=== PATIENT | female | born 1985 | race Caucasian/White ===

== ENCOUNTER 2018-07-17 07:00 | Inpatient (IN) | payer SELFPAY ==
[2015-08-18 08:54] VITALS: BMI 31.8
[2018-07-17 07:36] VITALS: BMI 33.0
[2018-07-17] MEDS: Lactated Ringers 1,000 ML 50 ML IV ×2 (08:01→13:47)
[2018-07-17] MEDS: Oxytocin 30 units/NS 500 ml 30 UNITS/500 ML IV.SOLN IV (08:14)
[2018-07-17 08:17] LABS: Absolute Lymphocyte Count 1.09 X10^3/ul (0.83-4.51); Absolute Neutrophil Count 3.3 X10^3/uL (2.0-7.7); Eosinophil# 0.02 X10^3/uL; Eosinophils% 0.4 % (0-5); Hematocrit 37.5 % (37-47); Hemoglobin 12.7 g/dl (12.0-15.0); Lymphocyte # 1.09 X10^3/ul (4.0); Lymphocyte % 22.3 % (19-41); Mean Corp Hgb Conc 33.9 g/gl (32-36); Mean Corpuscular Hgb 30.5 pg (27.0-32.0); Mean Corpuscular Volume 90.1 fL (81-99); Mean Platelet Vol. 11.5 fl (6.2-12.0); Monocyte# 0.47 X10^3/uL; Monocyte% 9.6 % (0-10); Neutrophil # 3.29 X10^3/uL (2.7-7.7); Neutrophil % 67.5 % (47-70); Platelet Count 165 K/mm3 (150-450); RBC Distribution Width CV 13.7 % (11.6-14.6); RBC Distribution Width SD 44.8 fl (35.1-43.9); Red Blood Count 4.16 M/mm3 (4.2-5.4); White Blood Count 4.9 K/mm3 (4.4-11.0)
[2018-07-17 08:22] LABS: POSITIVE COUNT NO; POSITIVE DIFFERENTIAL NO; POSITIVE MORPHOLOGY NO
--- NOTE | 2018-07-17 11:01 | PCM.HP.OB ---
- Problem List (1) Multiparity Status: Acute (2) 40 weeks gestation of Status: Acute (3) Positive GBS test Status: Acute History Date of Admission: 07/17/18 Final SARAH: 07/17/18 Final SARAH Source: LMP Gestational age: 40 Weeks and 0 Days History of this : This is a 32 year-old, G3, P2, at 40 weeks gestational age who presents for IOL for cervical dilation, multiparity, GBS positive. She is feeling well. +Irregular ctx's. No vb, lof. Good FM. Surgical History: Surgical History (Last Updated 07/17/18 @ 11:03 by Clara Cevallos DO) History of adenoidectomy Z90.89 Allergies No Known Allergies Allergy (Verified 07/17/18 07:38) Home Medications: Home Medications Vits [Prenatabs FA ] 1 tablet PO DAILY 08/18/15 Papaya Enzyme 1 tablet PO DAILY 07/17/18 Dha 500 mg PO DAILY 07/17/18 Probiotic 1 capsule PO DAILY 07/17/18 Smoking Status: Never smoker Alcohol: None Number of Fetus(es): 1 Heart Tracin/mod daija/+accels/no decels TOCO Analysis: No ctx's prior to pitocin History Past Pregnancies: Past Pregnancies Delivery Date Name GA/Weeks Outcome Route Weight Infant Gender Labor Length Anesthesia Delivery Location Provider FOB 41 7lb 41 7lb Labs: GBS positive Hgb 12.6 1 hr GTT 85 Isolated [employer] on anatomy US Syphilis NR RI Hep B neg HIV NR Rh positive GC/CT neg Expected Delivery Method: Spontaneous Vaginal Review of Systems Genitourinary: Reports: - - +Irregular ctx's. No vb, lof. 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 - Pitocin started given cervical dilation of 3 cm - PCN for GBS prophylaxis - Pt planning for epidural - Routine intrapartum care
--- NOTE | 2018-07-17 11:08 | HP.PCM_ITS ---
- Problem List (1) Multiparity Status: Acute (2) 40 weeks gestation of Status: Acute (3) Positive GBS test Status: Acute History Date of Admission: 07/17/18 Final SARAH: 07/17/18 Final SARAH Source: LMP Gestational age: 40 Weeks and 0 Days History of this : This is a 32 year-old, G3, P2, at 40 weeks gestational age who presents for IOL for cervical dilation, multiparity, GBS positive. She is feeling well. +Irregular ctx's. No vb, lof. Good FM. Surgical History: Surgical History (Last Updated 07/17/18 @ 11:03 by Clara Cevallos DO) History of adenoidectomy Z90.89 Allergies No Known Allergies Allergy (Verified 07/17/18 07:38) Home Medications: Home Medications Vits [Prenatabs FA ] 1 tablet PO DAILY 08/18/15 Papaya Enzyme 1 tablet PO DAILY 07/17/18 Dha 500 mg PO DAILY 07/17/18 Probiotic 1 capsule PO DAILY 07/17/18 Smoking Status: Never smoker Alcohol: None Number of Fetus(es): 1 Heart Tracin/mod daija/+accels/no decels TOCO Analysis: No ctx's prior to pitocin History Past Pregnancies: Past Pregnancies Delivery Date Name GA/Weeks Outcome Route Weight Infant Gender Labor Length Anesthesia Delivery Location Provider FOB 41 7lb 41 7lb Labs: GBS positive Hgb 12.6 1 hr GTT 85 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 No vb, lof. 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 - Pitocin started given cervical dilation of 3 cm - PCN for GBS prophylaxis - Pt planning for epidural - Routine intrapartum care
--- NOTE | 2018-07-17 11:56 | PN_ITS ---
Progress Note At bedside to check pt. She is getting more uncomfortable with ctx's. Cvx /- 2, AROM performed in usual fashion with return of scant clear fluid. Category 1 tracing. Continue current management
[2018-07-17] MEDS: fentaNYL-bupivacaine (epidural) 100 ML BAG EPIDURAL (13:22)
[2018-07-17] MEDS: Oxytocin 30 units/NS 500 ml 30 UNITS/500 ML IV.SOLN 334 UNITS IV (16:54)
[2018-07-17] MEDS: Oxytocin 30 units/NS 500 ml 30 UNITS/500 ML IV.SOLN 167 UNITS IV (17:24)
--- NOTE | 2018-07-17 17:56 | PCM.OPRPT ---
Problem List (1) Multiparity Status: Acute (2) 40 weeks gestation of Status: Acute (3) Positive GBS test Status: Acute Report of Operation Date of Procedure: 07/17/18 Pre-Operative Diagnosis: Multiparity, 40 week gestation, history of fast labor, positive GBS test, patient desires elective induction Post-Operative Diagnosis: As above Surgery/Procedure Performed:: Type of Anesthesia:: Epidural Specimen's removed: Placenta Estimated Blood Loss (mL): 300 Grafts/Implants Used: None - Complications None - Admit VTE Documentation VTE Present on Admission: No VTE Mechan Device Prophylaxis: None VTE Pharm Prophylaxis ordered?: No Vaginal Delivery Maternal Presentation: Elective Induction Method of Induction: Pitocin, Amniotomy Amniotic Membrane Rupture Type: Artificial Amniotic Fluid Description: Clear Final SARAH: 07/17/18 Gestational age: 40 Weeks and 0 Days Date of Procedure: 07/17/18 Pre-Operative Diagnosis: Multiparity, 40 week gestation, history of fast labor, GBS positive Post-Operative Diagnosis: As above Surgery/ Procedure Performed: Spontaneous Vaginal Delivery Type of Anesthesia: Epidural Description of Procedure: Patient complete and pushing. Head, anterior shoulder, posterior shoulder delivered without force or delay. VMI delivered through a nuchal cord and placed on mother's abdomen. Cord clamped and cut after 60 sec delay by FOB. Placenta delivered intact with fundal massage. Placenta normal in appearance and 3 vessel cord noted. Uterus explored x 1 with no retained placenta noted. Fundus firm and bleeding hemostatic. 2nd degree perineal laceration repaired in usual fashion using 3-0 Vicryl. Rectal exam performed. Presentation: Vertex Placental Delivery Description: Expressed Cord Vessel Description: 3 Vessels Nuchal Cord Compression: Without compression Cord Entanglement: Around neck x 1, tight Drain: Adams to straight drain Estimated Blood Loss: 300 A gender: Male (1 minute): 8 (5 minute): 9 Episiotomy Description: None Laceration: 2nd degree Medications given after delivery: IV Pitocin Complications: None
[2018-07-17] MEDS: 0.9% Saline Lock 10 ML Syringe IV (18:43)
[2018-07-17] MEDS: Ibuprofen 600 MG Tablet PO (19:26)
[2018-07-17 20:04] VITALS: RESP 16
[2018-07-17 20:12] VITALS: BP 129/85; PULSE 93; RESP 16; TEMP 36.9; O2SAT 98
[2018-07-17] MEDS: Acetaminophen 500 MG Tablet 1000 MG PO (22:01)
[2018-07-18 00:26] VITALS: BP 106/70; PULSE 59; RESP 16; TEMP 36.6
[2018-07-18] MEDS: Ibuprofen 600 MG Tablet PO ×4 (02:09→20:28)
[2018-07-18 04:52] VITALS: BP 128/76; PULSE 69; RESP 18; TEMP 36.7; O2SAT 96
[2018-07-18] MEDS: Acetaminophen 500 MG Tablet 1000 MG PO ×2 (06:52→18:07)
[2018-07-18 08:20] VITALS: BP 114/78; PULSE 82; RESP 16; TEMP 36.8
--- NOTE | 2018-07-18 10:45 | PCM.PN.OB ---
Patient Problems: Active and Suspected Problems Multiparity (Acute) 40 weeks gestation of (Acute) Positive GBS test (Acute) Subjective: Patient doing well. +Neck pain that is going to be evaluated by anesthesia. No HAQ, CP, SOB, palpitations, leg pain. +Cramping that is controlled. Luis reg diet without N/V. Ambulating and voiding without difficulty. She desires to stay the night given the neck pain. Using heat currently for the pain - Physical Exam General: Alert, No apparent distress HEENT: Atraumatic Lungs: - - No increased resp effort Abdomen: Soft, - - FF@U-1, ATTP Extremities: No Calf Tenderness Skin: No rashes Neurological: Neuro grossly intact Psych/Mental Status: Normal Affect, Appropriate Vital Signs Temp Pulse Resp BP Pulse Ox 98.3 F 82 16 114/78 96 07/18/18 08:20 07/18/18 08:20 07/18/18 08:20 07/18/18 08:20 07/18/18 04:52 Oxygen Delivery Method Room Air Weight: 186 lb 9.6 oz Body Mass Index (BMI) 33.0 Intake and Output for Last 24 Hours 07/16/18 07/17/18 07/18/18 23:59 23:59 23:59 Output Total 1400 / 1400 500 / 500 Balance -1400 / -1400 -500 / -500 Medical Necessity - Tobacco Use Smoking Status: Never smoker Assessment/Plan All Active Problems Multiparity (Acute) 40 weeks gestation of (Acute) Positive GBS test (Acute) PPD#1 s/p - Doing well - Neck pain to be evaluated by anesthesia. Continue heat, ice, Tylenol, Motrin prn at this time - Dispo: Routine care. Anticipate d/c home tomorrow
[2018-07-18 12:35] VITALS: BP 118/76; PULSE 83; RESP 16; TEMP 36.6
[2018-07-18] MEDS: Senna/Docusate Sodium 1 Tablet PO (15:27)
[2018-07-18 15:30] VITALS: BP 126/85; PULSE 75; RESP 16; TEMP 36.8
[2018-07-18 20:00] VITALS: BP 108/64; PULSE 61; RESP 18; TEMP 37.2
--- NOTE | 2018-07-18 22:49 | NURSING ---
2000 continues to have HAQ referring to neck and shoulders. Pain instantly worse upon standing and lessens when lying down. States knows that she needs to drink caffeine, fluids - drank one cup of coffee earlier. Encouraged to take in more caffeine. Discussed blood patch, pt concerned about another stick, questions answered.
[2018-07-19 02:00] VITALS: BP 114/80; PULSE 54; RESP 16; TEMP 36.9
[2018-07-19] MEDS: Ibuprofen 600 MG Tablet PO ×2 (02:35→08:32)
[2018-07-19] MEDS: Acetaminophen 500 MG Tablet 1000 MG PO (05:20)
[2018-07-19 08:00] VITALS: BP 108/72; PULSE 71; RESP 16; TEMP 36.8
--- NOTE | 2018-07-19 08:36 | PCM.PN.OB ---
Patient Problems: Active and Suspected Problems Multiparity (Acute) 40 weeks gestation of (Acute) Positive GBS test (Acute) Subjective: Patient doing well. Has a spinal HAQ and was evaluated by anesthesia yesterday, she is considering blood patch. No other complaints. No vision changes, CP, SOB, palpitations, leg pain. No uncontrolled abd pain. Luis reg diet without N/V. Ambulating and voiding without difficulty. Lochia normal. Feels ready to go home today - Physical Exam General: Alert, No apparent distress HEENT: Atraumatic Lungs: - - No increased resp effort Abdomen: Soft, Non Tender, - - FF@U Extremities: No edema Skin: No rashes Neurological: Neuro grossly intact Psych/Mental Status: Normal Affect, Appropriate Vital Signs Temp Pulse Resp BP Pulse Ox 98.4 F 54 L 16 114/80 96 07/19/18 02:00 07/19/18 02:00 07/19/18 02:00 07/19/18 02:00 07/18/18 04:52 Oxygen Delivery Method Room Air Weight: 186 lb 9.6 oz Body Mass Index (BMI) 33.0 Intake and Output for Last 24 Hours 07/17/18 07/18/18 07/19/18 23:59 23:59 23:59 Output Total 1400 / 1400 500 / 500 Balance -1400 / -1400 -500 / -500 Medical Necessity - Tobacco Use Smoking Status: Never smoker Assessment/Plan All Active Problems Multiparity (Acute) 40 weeks gestation of (Acute) Positive GBS test (Acute) PPD#2 s/p - Spinal HAQ: Pt considering blood patch. She is going to talk about it further with anesthesia to decide. Was evaluated by anesthesia yesterday - Otherwise doing well - Dispo: D/c home today. Discharge reviewed
--- NOTE | 2018-07-19 08:41 | DCINST_ITS ---
Discharge Diet: No Restrictions Discharge Activity: Return to Normal Activity, May Shower, May Take a Tub Bath May resume sexual activity in: 6 weeks Weight Bearing Status: Weight bearing as tolerated, Full weight bearing Lifting Restrictions: None Call your doctor if you observe: Fever of 101 or Higher, Inability to urinate, Inability to have a bowel movement, Using more than one pad per hour, Shortness of breath, Dizziness, Chest pain, Increased palpitations (irregular heartbeat), Calf discomfort, Uncontrolled pain Instructions: After a Vaginal Additional Instructions: If you experience any of the following, contact your healthcare provider. * Bleeding that soaks a pad every hour for 2 hours * Fever 100.4 or higher * Unrelieved incision or abdominal pain * Swelling, redness, discharge or bleeding from your incision or episiotomy site * Your incision begins to separate * Problems urinating (including inability to urinate or burning while urinat ing). * Visual changes * Severe headache * Flu-like symptoms * Pain or redness in one of both of your breasts * Pain, warmth, tenderness or swelling in your legs, especially the calf area * Frequent nausea and vomiting * Symptoms of depression or anxiety If you experience any of the following, call 911 or go to the nearest Emergency Room. * Chest pain * Problems breathing * Seizure activity * Partial or complete paralysis of a body part, slurred speech, weakness or drooping of the face, or a sudden inability to walk or hold your balance Allergies/Adverse Reactions: Allergies No Known Allergies Allergy (Verified 07/17/18 07:38) Medications to take at Discharge Vits [Prenatabs FA ] 1 tablet PO DAILY 08/18/15 Papaya Enzyme 1 tablet PO DAILY 07/17/18 Dha 500 mg PO DAILY 07/17/18 Probiotic 1 capsule PO DAILY 07/17/18 When: In 1-2 weeks if you desires, then in 6 weeks for routine appointment Primary Care Physician: Care Physician,No Primary [Primary Care Provider] - Test Results: Test results from this visit will be discussed in further detail at your follow- up appointment, if applicable. Proposed Discharge Date: 07/19/18
[2018-07-19 12:11] VITALS: BP 119/74; PULSE 72; RESP 18; TEMP 37.3; O2SAT 95
== END 2018-07-19 12:45 | disposition home or self-care (01) | DRG 806 ==
LOC: WP 07:18
PROVIDERS: Admitting Provider Obstetrics & Gynecology; Referring Provider Obstetrics & Gynecology; Visit Provider Obstetrics & Gynecology
DX: O75.89 Other specified complications of labor and delivery (principal); O98.82 Other maternal infectious and parasitic diseases complicating childbirth; Z37.0 Single live birth; O70.1 Second degree perineal laceration during delivery; B95.1 Streptococcus, group B, as the cause of diseases classified elsewhere; O69.1XX0 Labor and delivery complicated by cord around neck, with compression, not applicable or unspecified; G97.1 Other reaction to spinal and lumbar puncture; Y84.4 Aspiration of fluid as the cause of abnormal reaction of the patient, or of later complication, without mention of misadventure at the time of the procedure; Y92.230 Patient room in hospital as the place of occurrence of the external cause; Z22.330 Carrier of Group B streptococcus; Z3A.40 40 weeks gestation of pregnancy
CPT/HCPCS: 59025; 59050; 85025; 86850; 86900; 99218; J7120; A4216; G0378